=== PATIENT | male | born 1965 | race Caucasian/White ===

== ENCOUNTER 2023-01-16 08:41 | Outpatient (CLI) | payer BC, SELFPAY ==
--- NOTE | 2023-01-16 09:51 | ECG_ITS ---
Measurements Intervals [place] Rate: 48 P: 50 WV: 210 QRS: -2 QRSD: 100 T: 1 QT: 429 QTc: 383 Interpretive Statements SINUS BRADYCARDIA WITH FIRST DEGREE AV BLOCK BASELINE ARTIFACT- I, II AVR, AVL ABNORMAL ECG NO PREVIOUS ECG AVAILABLE FOR COMPARISON Electronically Signed On 01-16-2023 11:10:29 TRAILER BODY ASSEMBLER by Andrea Roman D.O.
[2023-01-16 10:34] LABS: Basophils Absolute Auto 0.1 K/mm3 (0.0-0.1); Basophils Percent Auto 0.8 % (0.2-1.2); Eosinophils Absolute Auto 0.2 K/mm3 (0-0.3); Eosinophils Percent Auto 3.3 % (0-4.4); Hematocrit 40.9 % (42.0-52.0); Hemoglobin 13.6 g/dL (14.0-18.0); Immature Granulocyte Absolute 0.02 K/mm3 (0.00-0.031); Immature Granulocyte Percent A 0.3 % (0-0.5); Lymphocytes Absolute Auto 2.31 K/mm3 (0.9-3.2); Lymphocytes Percent Auto 34.7 % (18.3-44.2); Mean Corpuscular HGB Conc 33.3 g/dl (32-36); Mean Corpuscular Hemoglobin 29.8 pg (26-34); Mean Corpuscular Volume 89.7 fl (80-100); Mean Platelet Volume 11.2 fl (7.4-10.4); Monocytes Absolute Auto 0.6 K/mm3 (0.1-0.6); Monocytes Percent Auto 9.3 % (2.6-8.5); Neutrophils Absolute Auto 3.4 K/mm3 (1.3-6.7); Neutrophils Percent Auto 51.6 % (45.5-73.1); Platelet Count Result 210 k/mm3 (150-375); Red Blood Count 4.56 M/mm3 (4.6-6.20); Red Cell Distribution Width 12.9 % (11.5-14.5); White Blood Count 6.7 K/mm3 (4.5-10.0)
[2023-01-16 10:40] LABS: Urine Cotinine NEGATIVE
[2023-01-16 10:42] LABS: Albumin Level 4.5 g/dL (3.5-5.1); Estimated Glomerular Filt Rate > 60; Glucose 92 mg/dL (65-110)
[2023-01-16 10:47] LABS: Hemoglobin A1C 5.2 % (<5.7)
== END 2023-01-16 08:42 | disposition home or self-care (01) ==
LOC: ANHSURGERY 08:48
PROVIDERS: Visit Provider Orthopaedic Surgery
DX: Z01.818 Encounter for other preprocedural examination (principal); M17.12 Unilateral primary osteoarthritis, left knee; M17.0 Bilateral primary osteoarthritis of knee; R94.31 Abnormal electrocardiogram [ECG] [EKG]; R00.1 Bradycardia, unspecified
CPT/HCPCS: 80307; 82040; 82565; 82947; 83036; 85025; 86850; 86900; 86901; 87081; 93005

== ENCOUNTER 2023-01-20 00:15 | Day surgery (SDC) | payer BC, SELFPAY ==
[2023-01-16 09:13] VITALS: BP 147/92; PULSE 52; RESP 16; TEMP 36.3; O2SAT 98; BMI 31.9
--- NOTE | 2023-01-16 09:23 | PC.NURSE ---
Report to the Outpatient Waiting Room, entrance under the green pavilion located off [facility], at time __6:00AM on date __01/20/23 . Planned Procedure Time: __7:30AM . Time changes happen often and if your time is changed the preop area will call you the afternoon before. - You and your visitor will be asked to self-screen and do not enter if you have any COVID symptoms. - Only one visitor is requested with a max of two and NO children visitors are allowed at this time. - The patient visitor may be requested to leave or wait in car when not with patient due to distancing restrictions. - A mask is optional within the hospital at this time. Patients may have clear liquids (water, carbonated beverages, clear teas, apple juice) until 3 hours prior to surgery with a maximum of 20 ounces. - No food from midnight until time of surgery Take the following medications with a SIP of water the morning of surgery: __GABAPENTIN, NEBIVOLOL, TRAMADOL DO NOT STOP ANY OF YOUR OTHER PRESCRIPTION MEDICATIONS PRIOR TO SURGERY ?EXCEPT THE FOLLOWING Medications to discontinue per physician ___HOLD ALL VITAMINS/SUPPLEMENTS 3 DAYS PRE-OP Date to take last dose____01/16/23 Please no make-up, nail occitan, hairspray, perfume, deodorant, or body powder the day of surgery. No jewelry (including any body piercings) or valuables the day of surgery, leave them at home. Please take a shower or bath the night before, or the morning of, surgery with an antibacterial soap. Wear comfortable, loose fitting clothing. Children are encouraged to wear pajamas. - Jewelry must be removed prior to entering the operating room. Rings and piercings that are not removed may be cut off. - The hospital will not accept responsibility for valuables. - Please leave all valuables, including medications, at home the day of surgery. If you are going home after surgery, a licensed wood pile driver operator must drive you home. - NO public transportation without another adult if you receive anesthesia. - We recommend that an adult stay with you for 24 hours following discharge. - We also recommend that you do not drive, make important decision, drink alcoholic beverages, or take any drugs that were not prescribed by your health care provider for at least 24 hours after your discharge time. Follow any additional instructions given to you from your surgeon. If you or anyone in your household have experienced Covid symptoms in the past week, please notify your surgeon or the nurse liaison at the phone number below for possible testing. Telephone instructions given to _PATIENT & WIFE___and asked if any additional questions and then verbalized understanding. Patient advised to call surgeon office or pre surgery nurse liaison [phone] if any additional questions.
[2023-01-20] VITALS (12 sets, daily range): BP systolic 112–152; BP diastolic 57–109; PULSE 53–107; RESP 12–18; TEMP 36.1–37.1; O2SAT 95–100
--- NOTE | ~2023-01-20 | XR_ITS ---
EXAMINATION: [id number]_[id number]_CR DATE: 01/20/2023 10:30 INDICATION: Postoperative evaluation following left total knee arthroplasty. TECHNIQUE: Anteroposterior and lateral views of the left knee were obtained. COMPARISON: 10/08/2022 FINDINGS: Left total knee arthroplasty with patellar resurfacing appears well seated and in near anatomic align ment. No fractures identified. Small enthesophytes along the upper pole of the patella. Expected pos toperative subcutaneous, intramedullary and intra-articular gas. IMPRESSION: 1. Left total knee arthroplasty, negative for postoperative purposes. Reviewed, dictated and finalized at location B.
[2023-01-20] MEDS: ACETAMINOPHEN 500 MG TABLET 1000 MG PO (06:46)
[2023-01-20] MEDS: LACTATED RINGERS 1,000 ML 30 ML IV CONT ×2 (06:46→10:10)
[2023-01-20] MEDS: TRANEXAMIC ACID 1,000MG/ISO100 1,000 MG/100 ML BAG 200 MG IVPB (07:03)
--- NOTE | 2023-01-20 07:14 | WPDHPUPDATE1 ---
History and Physical Update Update Date/Time: 01/20/23 07:14 History and Physical has been reviewed, including an updated exam of the patient. There are NO changes in the patient's condition. Risks, benefits, and alternatives have been discussed and questions answered. Patient agrees to proceed with procedure.
--- NOTE | 2023-01-20 07:15 | WPDANESEPPF ---
Anes - Initial Pre Proc Eval Procedure: Operation Date: 01/20/23 07:30 Proposed Procedures p Left Total Knee Arthroplasty - Gio Stratton MD Date/Time: 01/20/23 07:15 Surgeon: Gio Stratton MD Pre Op Diagnosis: oa left knee Patient Data Age: 57 Gender: M Height: 1.78 m Weight: 98 kg Last Vital Signs Temp 36.2 C L 01/20/23 07:09 Pulse 53 L 01/20/23 07:09 Resp 16 01/20/23 07:09 BP 130/75 01/20/23 07:09 Pulse Ox 98 01/20/23 07:09 O2 Del Method Room Air 01/20/23 07:09 Allergies Allergy/AdvReac Type Severity Reaction Status Date / Time No Known Allergies Allergy Verified 01/20/23 06:19 Home Medications Medication Instructions Recorded Confirmed Type gabapentin 600 mg tablet 600 mg PO TID 12/26/22 01/20/23 History meloxicam 15 mg tablet 15 mg PO DAILY 12/26/22 01/16/23 History nebivolol 10 mg tablet 10 mg PO QAM 12/26/22 01/20/23 History tadalafil 2.5 mg tablet (Cialis) 2.5 mg PO DAILY PRN Erectile 12/26/22 01/16/23 History Dysfunction testosterone cypionate 200 mg/mL 200 mg IM ONCE 12/26/22 01/16/23 History intramuscular oil (Depo-Testosterone) tramadol 50 mg tablet 100 mg PO TID 12/26/22 01/20/23 History Pregnenolone 30 mg PO DAILY 01/16/23 01/16/23 History acetaminophen 500 mg tablet 500 mg PO QAM 01/16/23 01/16/23 History lactobacillus combination no.8 3 3 cell PO DAILY 01/16/23 01/16/23 History billion cell capsule magnesium 500 mg tablet 15 mg PO DAILY 01/16/23 01/16/23 History multivitamin 1 tablet PO DAILY 01/16/23 01/16/23 History omega 9-rpp-rks-fish oil 1,200 mg 1 cap PO DAILY 01/16/23 01/16/23 History (144 mg-216 mg) capsule (Fish Oil) red yeast rice 600 mg capsule 600 mg PO DAILY 01/16/23 01/16/23 History rivaroxaban 10 mg tablet (Xarelto) 10 mg PO DAILY PE prophylaxis s/p 01/16/23 01/16/23 Rx total joint replacement 14 days #14 tabs tumeric 100 mg-aravind 150 mg-olive 1 cap PO DAILY 01/16/23 01/16/23 History 50 mg-oreg 150 mg-caprylate capsule Patient hx anesthesia problems: none Family hx anesthesia problems: none Results Review: All pre-operative results and documents have been reviewed as part of the pre-operative evaluation. 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 Sexual Orientation (if Verbalized by the Patient): Straight or Heterosexual Spiritual care concerns: Yes Agree to blood products: No Anes - Eval Final PreProcedure Day of Procedure 01/20/23 07:15 Patient weight: obese Heart: regular rate and rhythm Lungs: clear to auscultation Airway: Mallampati scale class II Neurological: alert and oriented Last oral intake: >/= 8 hours ASA classification: III Emergent: no Anesthetic plan: proceed Anesthesia type and monitoring: general LMA and standard monitoring Results Review: All pre-operative results and documents have been reviewed as part of the pre-operative evaluation. Informed Consent: The patient's anesthetic plan and its attendant risks and benefits were discussed with the patient/family/POA. Questions were solicited and answers provided to the sat
[2023-01-20] MEDS: ceFAZolin 2 GM/D5W 50 ML 2 GM/50 ML BAG IVPB ×3 (07:30→22:48)
--- NOTE | 2023-01-20 07:30 | WPDANESPNB ---
Anes - Peripheral Nerve Block Date/Time: 01/20/23 07:30 I have discussed with the patient/family/POA the placement of a peripheral nerve block for post-operative pain management, including associated risks, benefits, complications, and side effects. Alternative methods of post-operative analgesia were detailed. Questions were solicited and answers provided to the satisfaction of the patient/family/POA. Time-Out: A pre-procedural Time-Out was completed immediately before starting the procedure and confirmed: Patient Identification, Site, Procedure, Patient Position and the Availability of Requisite Equipment. Clinical Indications: Acute post-operative pain management requested by the operative surgeon. Nerve Block Insertion Note Anes-nerve block: adductor canal left Patient position: supine Skin prep: chlorhexidine Needle: 22 gauge, stimulating, insulated echogenic needle. Needle length: 80 mm Technique: ultrasound Technique comment: mid2mg [id number] Injectate: bupivacaine 0.5% with epi 5 mcg/ml (30ml no epi) and dexamethasone (mg) (4) Observations: tolerated well Complications: none Procedure start time:: 719 Procedure end time:: 726
[2023-01-20] MEDS: GENTAMICIN BONE CEMENT REFOBACIN 1 EACH TOPICAL (08:50)
--- NOTE | 2023-01-20 09:00 | SUR.OPER ---
tourniquet time 60mts 30 minutes added to time as per surgeon
[2023-01-20] MEDS: ceFAZolin SODIUM 1 GM VIAL IV PUSH (09:07)
[2023-01-20] MEDS: fentaNYL CITRATE INJ (*CRX) 100 MCG/2 ML VIAL 25 MCG IV PUSH ×6 (10:19→11:28)
[2023-01-20] MEDS: HYDROmorphone HCL INJ (*CRX) 1 MG/ML SYR IV PUSH ×3 (10:38→11:00)
--- NOTE | 2023-01-20 10:47 | SUR.PHASEI ---
[address] love to seee about getting something more for pain, orders given to change to 1mg dilaudid q5 minutes max dose of 3mg
--- NOTE | 2023-01-20 11:05 | W.PM.PROC2 ---
Procedure Note - Detailed Date of Procedure 01/20/23 Pre-op Diagnosis oa left knee Post-op Diagnosis Same Procedure Performed A left total knee replacement Surgeon Gio Stratton MD Traffic Engineering Director [facility] Brooks Anesthesia General and Regional Description of Procedure The patient was identified and proper site identified. In the preop holding area the anesthesia team performed a left lower extremity sub sartorial block after which the patient was taken to the operating room and transferred to the OR table positioning supine taking care to pad the torso and extremities. After general anesthetic induction and intubation a nonsterile tourniquet was placed high on the left thigh. The left lower extremity was prepped and draped in the usual sterile fashion. The extremity was exsanguinated and with the knee flexed tourniquet was inflated to 300 mmHg remaining up for approximately 63 minutes. An anterior midline incision was made and a modified medial parapatellar approach was used. Infra and suprapatellar fat pads were excised. Patella was resected leaving 15 mm thickness and prepared for the 31 round three peg component. Using the intramedullary guide the distal femur was cut in the proper orientation for the size seven femoral component. Using the extramedullary guide the tibia was cut perpendicular to the long axis protecting collateral ligaments and popliteal structures. It was sized to a 75. Flexion and extension gaps were balanced. Trial reduction was undertaken and the weight-bearing line was noted to passed through the center of the joint. Proximal tibia was drilled and punched in the proper orientation for the real component. Trial components were removed. The bone surfaces were washed with pulsatile lavage and dried. The real components were cemented simultaneously. The knee was held in extension and the patella held clamped until the cement had cured. Excess cement was removed from the joint. After trialing it was determined that the 14 mm insert gave full range of motion from 0-120 degrees of flexion and the patella tracked in the femoral groove with no lift-off. After final lavage the joint the real size 75 14 millimeter insert was placed and secured with a locking bar. A Betadine and saline wash was placed into the wound and allowed to sit for approximately 3 minutes and then evacuated. Periarticular tissues were infiltrated with 60 cc of the arthroplasty solution. Surgicel powder was applied into the wound during the closure. The extensor mechanism was repaired with #2 Vicryl suture and 0 looped PDS suture. Subcu was reapproximated with 3-0 Monocryl, 3-0 Quill and tissue adhesive for the skin. A sterile dressing was applied. He tolerated the procedure well, was awakened and extubated, transferred to the bed and was taken to recovery area in stable condition. There were no known intraoperative complications. Perioperative antibiotics were administered. Estimated Blood Loss -200.0 Tourniquet Time 63 Drains No Packing No Pathology None sent Complications No immediate complications Condition Stable Disposition PACU [facility] Billing Surgery - Charge Forward: Surgery Billing ([id number])
[2023-01-20] MEDS: diazePAM INJ (*CRX) 10 MG/2 ML SYRINGE 2.5 MG IV PUSH (11:09)
[2023-01-20] MEDS: SODIUM CHLORIDE 0.9% IV 1,000 ML 125 ML IV CONT (12:52)
[2023-01-20] MEDS: KETOROLAC 15 MG/ML VIAL (*BKC) IV PUSH ×2 (12:54→18:21)
[2023-01-20] MEDS: oxyCODONE/ACETAMINOPHEN (*CRX) 5-325 MG TABLET 1 TABLET PO ×3 (13:05→20:09)
[2023-01-20] MEDS: GABAPENTIN 300 MG CAPSULE 600 MG PO ×2 (13:05→18:16)
--- NOTE | 2023-01-20 13:18 | PC.NURSE ---
This patient, Adria Kemp, was received from [or] on 01/20/23 at 1200. Patient/family oriented to unit policies and routines. Report from hakeem
[2023-01-20] MEDS: SENNA/DOCUSATE SODIUM TABLET 2 TAB PO (18:17)
[2023-01-20] MEDS: FAMOTIDINE 20 MG TABLET PO (20:09)
[2023-01-21] MEDS: KETOROLAC 15 MG/ML VIAL (*BKC) IV PUSH ×2 (00:13→05:54)
[2023-01-21] MEDS: oxyCODONE/ACETAMINOPHEN (*CRX) 5-325 MG TABLET 1 TABLET PO ×3 (00:14→10:58)
[2023-01-21 06:00] VITALS: BP 121/67; PULSE 60; RESP 16; TEMP 36.5; O2SAT 98
[2023-01-21] MEDS: ceFAZolin 2 GM/D5W 50 ML 2 GM/50 ML BAG IVPB (06:00)
--- NOTE | 2023-01-21 07:53 | PM.DS ---
DS: Admitting Diagnosis Discharge Date 01/21/2023 Admitting Diagnosis Left knee osteoarthritis DS: Discharge Diagnosis Discharge Diagnosis (1) Status post total left knee replacement: Code(s): Z96.652 - Presence of left artificial knee joint Status: Acute Plan 57-year-old male postop day 1 after left total knee replacement. Overall uneventful overnight stay. Doing very well this morning was able to participate fully with therapy yesterday. Postoperative wound care and medications were discussed with him this morning. Plan for him to see therapy again today prior to discharge. He has a scheduled follow-up appointment in 2 weeks for wound check. DS: Summary Hospital Course Reason for hospitalization: Observation after outpatient procedure Hospital Course: 57-year-old male admitted for observation after left total knee replacement on 01/20/2023. Was seen by therapy yesterday and will plan to do so again today prior to discharge. Exam of his surgical dressing this morning shows that is clean and dry. No significant ecchymosis or erythema. Plan discharge today with follow-up in 2 weeks. Status at Discharge Functional status at discharge: uses cane/walker Overall status at discharge: patient is progressing back to baseline Time Spent with Patient Time attestation: Total time spent providing and/or coordinating discharge services: Time spent: Less than 30 minutes Exam Const: General: comfortable and no acute distress HENMT: Mouth: Yes moist mucous membranes Eyes: General: appearance normal, both eyes and all related structures Resp: Effort & Inspection: normal respiratory effort Skin: General skin exam: normal color and no erythema Other: There is a clean and dry surgical dressing over his incision at the anterior left knee. Neuro: Sensory Exam: normal sensation Extrem: Other: Exam of his left knee shows active range of motion from near full extension. Calves negative. He is able to dorsi and plantar flex the left ankle without difficulty. Neurovascular status left lower extremity intact. Psych: Mental Status: mental status grossly normal Radiology Reports: Comments: EXAMINATION: [id number]_[id number]_CR DATE: 01/20/2023 10:30 INDICATION: Postoperative evaluation following left total knee arthroplasty. TECHNIQUE: Anteroposterior and lateral views of the left knee were obtained. COMPARISON: 10/08/2022 FINDINGS: Left total knee arthroplasty with patellar resurfacing appears well seated and in near anatomic alignment.? No fractures identified. Small enthesophytes along the upper pole of the patella. Expected postoperative subcutaneous, intramedullary and intra-articular gas. IMPRESSION: 1. Left total knee arthroplasty, negative for postoperative purposes. Knee X-Ray 01/20/23 Discharge Plan Discharge Patient Disposition: Home, Self-Care Discharge Instructions: 3 times daily for 20 minutes each time, reclining in bed with ice packs over the incision and a pillow underneath the calf of the affected leg, not under the knee. Your wound is glued so it is okay to remove the dressing, get into the shower and get the wound wet in two days. Be sure to read through all the information that came from a my office and the hospital. Most of the answers you will need can be found that material. Call the office with any questions that you cannot find answers to, or concerns you may have. After the Xarelto is completed, start taking one coated 325 mg aspirin daily and do this for four more weeks. Please call [facility] at as soon as possible to arrange for/verify your follow-up appointment to be seen in 2 weeks. Also, call the office with any orthopedic/surgical related questions prior to follow-up. Be sure to get up and move around several times daily but do not overdo it. Take the arthritis formula Tylenol 650 mg tablet on an 8 hour schedule. A good 8 hour schedule is:
[2023-01-21] MEDS: polyethylene glycoL 3350 17 GM POWD.PACK PO (08:08)
[2023-01-21] MEDS: ACIDOPHILUS/BULGARICUS CHEWABLE TABLET 1 TABLET PO (08:08)
[2023-01-21] MEDS: GABAPENTIN 300 MG CAPSULE 600 MG PO (08:08)
[2023-01-21] MEDS: SENNA/DOCUSATE SODIUM TABLET 2 TAB PO (08:08)
[2023-01-21] MEDS: FAMOTIDINE 20 MG TABLET PO (08:09)
[2023-01-21] MEDS: OMEGA 3 POLYUNSAT FATTY ACIDS 1 GM CAP PO (08:09)
[2023-01-21] MEDS: MULTIVITAMINS THERAPEUTIC TAB (*BKC) 1 TABLET PO (08:09)
[2023-01-21] MEDS: RIVAROXABAN 10 MG TABLET PO (08:09)
[2023-01-21] MEDS: NEBIVOLOL HCL 5 MG TABLET 10 MG PO (08:09)
== END 2023-01-21 11:35 | disposition home or self-care (01) ==
LOC: ANHSURGERY 11:05 → ANH3MEDSUR 11:53
PROVIDERS: Visit Provider Orthopaedic Surgery
PROC: (CPT 27447; principal; 2023-01-20 07:30)
DX: M17.0 Bilateral primary osteoarthritis of knee (principal); I10 Essential (primary) hypertension
CPT/HCPCS: 27447; 73560; 80307; 82040; 82565; 82947; 83036; 85025; 86850; 86900; 86901; 87081; 93005; 97110; 97116; 97161; 97165; 97530; 97535; A9270; C1713; C1776; J0171; J0461; J0690; J1100; J1170; J1885; J2250; J2270; J2405; J2704; J2795; J3010; J3360; J3370; J7030; J7120

== ENCOUNTER 2023-04-21 00:35 | Day surgery (SDC) | payer BC, SELFPAY ==
[2023-04-10 08:38] VITALS: BMI 30.9
--- NOTE | 2023-04-10 08:58 | PC.NURSE ---
Report to the Outpatient Waiting Room, entrance under the green pavilion located off [facility], at time _11:00AM on date ___04/21/23____. Planned Procedure Time: __1:00PM . Time changes happen often and if your time is changed the preop area will call you the afternoon before. - You and your visitor will be asked to self-screen and do not enter if you have any COVID symptoms. - A mask is optional within the hospital at this time. Patients may have clear liquids (water, carbonated beverages, clear teas, apple juice) until 3 hours prior to surgery with a maximum of 20 ounces. - No food from midnight until time of surgery Take the following medications with a SIP of water the morning of surgery: __NEBIVOLOL, GABAPENTIN NEEDED, TRAMADOL NEEDED___ DO NOT STOP ANY OF YOUR OTHER PRESCRIPTION MEDICATIONS PRIOR TO SURGERY ?EXCEPT THE FOLLOWING Medications to discontinue per physician ____NONE Date to take last dose Please no make-up, nail romanian, hairspray, perfume, deodorant, or body powder the day of surgery. No jewelry (including any body piercings) or valuables the day of surgery, leave them at home. Please take a shower or bath the night before, or the morning of, surgery with an antibacterial soap. Wear comfortable, loose fitting clothing. Children are encouraged to wear pajamas. - Jewelry must be removed prior to entering the operating room. Rings and piercings that are not removed may be cut off. - The hospital will not accept responsibility for valuables. - Please leave all valuables, including medications, at home the day of surgery. If you are going home after surgery, a licensed tow bar driver must drive you home. - NO public transportation without another adult if you receive anesthesia. - We recommend that an adult stay with you for 24 hours following discharge. - We also recommend that you do not drive, make important decision, drink alcoholic beverages, or take any drugs that were not prescribed by your health care provider for at least 24 hours after your discharge time. Follow any additional instructions given to you from your surgeon. If you or anyone in your household have experienced Covid symptoms in the past week, please notify your surgeon or the nurse liaison at the phone number below for possible testing. Telephone instructions given to __PATIENT and asked if any additional questions and then verbalized understanding. Patient advised to call surgeon office or pre surgery nurse liaison [phone] if any additional questions.
[2023-04-21] VITALS (16 sets, daily range): BP systolic 117–174; BP diastolic 66–97; PULSE 85–94; RESP 14–18; TEMP 36.2–37.5; O2SAT 94–100
--- NOTE | ~2023-04-21 | XR_ITS ---
EXAMINATION: [id number]_[id number]_CR DATE: 04/21/2023 14:55 CDT INDICATION: Right knee arthroplasty TECHNIQUE: 2 views right knee FINDINGS: There is a right total knee arthroplasty in expected position. Subcutaneous gas with fluid and air in the joint are consistent with recent surgery. No evidence of periprosthetic fracture. IMPRESSION: 1. Recent right total knee arthroplasty. Reviewed, dictated and finalized at location []
--- NOTE | 2023-04-21 07:24 | WPDANESEPPF ---
Anes - Initial Pre Proc Eval Procedure: Operation Date: 04/21/23 11:00 Proposed Procedures p Right Total Knee Arthroplasty - Gio Stratton MD Date/Time: 04/21/23 07:24 Surgeon: Gio Stratton MD Pre Op Diagnosis: right knee oa Patient Data Age: 57 Gender: M Height: 1.78 m Weight: 98 kg Allergies Allergy/AdvReac Type Severity Reaction Status Date / Time No Known Allergies Allergy Verified 04/15/23 10:03 Home Medications Medication Instructions Recorded Confirmed Type gabapentin 600 mg tablet 600 mg PO TID 12/26/22 04/15/23 History nebivolol 10 mg tablet 10 mg PO QAM 12/26/22 04/15/23 History tadalafil 2.5 mg tablet (Cialis) 2.5 mg PO DAILY PRN Erectile 12/26/22 04/15/23 History Dysfunction tramadol 50 mg tablet 100 mg PO TID 12/26/22 04/15/23 History acetaminophen 500 mg tablet 1,000 mg PO QAM 01/16/23 04/15/23 History cyclobenzaprine 10 mg tablet 10 mg PO QPM PRN muscle spasm #20 02/03/23 04/15/23 Rx tabs celecoxib 100 mg capsule (Celebrex) 100 mg PO BID 03/18/23 04/15/23 History testosterone enanthate 100 mg/0.5 100 mg subcut WEEKLY 04/10/23 04/15/23 History mL subcutaneous auto-injector (Xyosted) rivaroxaban 10 mg tablet (Xarelto) 10 mg PO DAILY PE prophylaxis s/p 04/15/23 04/15/23 Rx surgery #14 tabs mupirocin 2 % topical ointment 1 applic topical DAILY 5 days #22 04/17/23 Rx grams Patient hx anesthesia problems: none Family hx anesthesia problems: none Results Review: All pre-operative results and documents have been reviewed as part of the pre-operative evaluation. [facility] Past Medical History Medical History (Updated 04/15/23 @ 10:32 by Gio Stratton MD) Arthritis of right knee Fibromyalgia Hypertension Surgical History Surgical History History of cervical spinal surgery 2020 History of fusion of lumbar spine 2020 Status post total left knee replacement 01/20/2023 Family History Family History Mother Diabetes mellitus Hypertension Father Colon cancer Social History Social History Smoking status: Never smoker Alcohol intake: current Drinks per week: 5 Substance use: never Substance use type: does not use Lack of Transportation: No Lack of Food: Never True Current Housing: I Have Housing Concerned About Future Housing: No Difficulty Paying Gas/Electric Bills: No Difficulty Paying for Meds: No Currently Unemployed: No Education: High School Diploma/GED Difficulty w/ Childcare or Family Care: No Living arrangements: with family Additional living arrangements comments: Occupation/Education: occupation 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 Gender identity (if verbalized by the patient): Male Sexual Orientation (if Verbalized by the Patient): Straight or Heterosexual Spiritual care concerns: Yes (BLOOD REFUSAL) Agree to blood products: No Anes - Eval Final PreProcedure Day of Procedure 04/21/23 07:24 Patient weight: obese Heart: regular rate and rhythm Lungs: clear to auscultation Airway: Mallampati scale class II Neurological: alert and oriented Last oral intake: >/= 8 hours ASA classification: III Emergent: no Anesthetic plan: proceed Anesthesia type and monitoring: regional spinal and standard monitoring Results Review: All pre-operative results and documents have been reviewed as part of the pre-operative evaluation. Informed Consent: The patient's anesthetic plan and its attendant risks and benefits were discussed with the patient/family/POA. Questions were solicited and answers provided to the satisfaction of the patient/family/POA.
--- NOTE | 2023-04-21 07:31 | WPDANESPNB ---
Anes - Peripheral Nerve Block Date/Time: 04/21/23 07:31 I have discussed with the patient/family/POA the placement of a peripheral nerve block for post-operative pain management, including associated risks, benefits, complications, and side effects. Alternative methods of post-operative analgesia were detailed. Questions were solicited and answers provided to the satisfaction of the patient/family/POA. Time-Out: A pre-procedural Time-Out was completed immediately before starting the procedure and confirmed: Patient Identification, Site, Procedure, Patient Position and the Availability of Requisite Equipment. Clinical Indications: Acute post-operative pain management requested by the operative surgeon. Nerve Block Insertion Note Anes-nerve block: adductor canal right Patient position: supine Skin prep: chlorhexidine Needle: 22 gauge, stimulating, insulated echogenic needle. Needle length: 80 mm Technique: ultrasound Injectate: bupivacaine 0.5% with epi 5 mcg/ml (30cc - no epi) Observations: tolerated well Complications: none Procedure start time:: 113 Procedure end time:: 1136
[2023-04-21] MEDS: LACTATED RINGERS 1,000 ML 30 ML IV CONT ×2 (09:50→14:30)
[2023-04-21] MEDS: TRANEXAMIC ACID 1,000MG/ISO100 1,000 MG/100 ML BAG 200 MG IVPB (09:55)
[2023-04-21] MEDS: ACETAMINOPHEN 500 MG TABLET 1000 MG PO ×2 (09:56→16:09)
--- NOTE | 2023-04-21 11:01 | WPDHPUPDATE1 ---
History and Physical Update Update Date/Time: 04/21/23 11:01 History and Physical has been reviewed, including an updated exam of the patient. There are NO changes in the patient's condition. Risks, benefits, and alternatives have been discussed and questions answered. Patient agrees to proceed with procedure.
[2023-04-21] MEDS: ceFAZolin 2 GM/D5W 50 ML 2 GM/50 ML BAG IVPB ×2 (12:05→20:24)
--- NOTE | 2023-04-21 14:29 | W.PM.PROC2 ---
Procedure Note - Detailed Date of Procedure 04/21/23 Pre-op Diagnosis right knee oa Post-op Diagnosis Same Procedure Performed Right total knee replacement Surgeon Gio Stratton MD [employer] [facility] Anesthesia General and Regional Description of Procedure The patient was identified and proper site identified. In the preop holding area the anesthesia team performed a right-sided sub sartorial block after which the patient was taken to the operating room and transferred to the OR table positioning supine taking care to pad the torso and extremities. After general anesthetic induction and intubation a nonsterile tourniquet was placed high on the right thigh. The right lower extremity was prepped and draped in the usual sterile fashion. The extremity was exsanguinated and with the knee flexed tourniquet was inflated to three high mmHg remaining up for approximately 63 minutes. An anterior midline incision was made and a modified medial parapatellar approach was used. Infra and suprapatellar fat pads were excised. Patella was resected leaving 15 mm thickness and prepared for the 31 round three peg component. Using the intramedullary guide the distal femur was cut in the proper orientation for the size 70 femoral component. Using the extramedullary guide the tibia was cut perpendicular to the long axis protecting collateral ligaments and popliteal structures. It was sized to a 75. Flexion and extension gaps were balanced. Trial reduction was undertaken and the weight-bearing line was noted to passed through the center of the joint. Proximal tibia was drilled and punched in the proper orientation for the real component. Trial components were removed. The bone surfaces were washed with pulsatile lavage and dried. The real components were cemented simultaneously. The knee was held in extension and the patella held clamped until the cement had cured. Excess cement was removed from the joint. After trialing it was determined that the 14 mm insert gave full range of motion from 0-120 degrees of flexion and the patella tracked in the femoral groove with no lift-off. After final lavage the joint the real E poly size 14 insert was placed and secured with a locking bar. A Betadine and saline wash was placed into the wound and allowed to sit for approximately 3 minutes and then evacuated. Periarticular tissues were infiltrated with 60 cc of the arthroplasty solution. Surgicel powder was applied into the wound during the closure. The extensor mechanism was repaired with #2 Vicryl suture and 0 looped PDS suture. Subcu was reapproximated with 3-0 Monocryl, 2-0 Quill and tissue adhesive for the skin. A sterile dressing was applied. He tolerated the procedure well, was awakened and extubated, transferred to the bed and was taken to recovery area in stable condition. There were no known intraoperative complications. Perioperative antibiotics were administered. Estimated Blood Loss 150 Tourniquet Time 63 Drains No Packing No Pathology None sent Complications No immediate complications Condition Stable Disposition PACU [facility] Billing Surgery - Charge Forward: Surgery Billing ([id number])
[2023-04-21] MEDS: fentaNYL CITRATE INJ (*CRX) 100 MCG/2 ML VIAL 25 MCG IV PUSH ×8 (14:35→15:00)
[2023-04-21] MEDS: HYDROmorphone HCL INJ (*CRX) 1 MG/ML SYR 0.5 MG IV PUSH ×6 (14:55→15:30)
--- NOTE | 2023-04-21 15:25 | SUR.PHASEI ---
1525: multiple phone calls to Dr. Aiden Castellano regarding patient's pain 06/19. Many attempts to control pain. Including; elevation, ice therapy, medication, relaxation, therapeutic communication, breathing exercises. Dr. Castellano gave this RN orders for pain medications as needed. Pain is still uncontrollable and patient is continuing c/o 06/19 pain.
[2023-04-21] MEDS: diphenhydrAMINE HCl INJ 50 MG/ML VIAL 25 MG IV PUSH (15:34)
[2023-04-21] MEDS: oxyCODONE HCL (*CRX) 5 MG TAB IR PO (16:10)
--- NOTE | 2023-04-21 16:30 | ADMGEN ---
This patient, Adria Kemp, was admitted to Medical Room 347-01. Patient/family oriented to hospital policies and general routines including ID bracelet, bed and alarms, visiting hours, pain management, procedures, bathroom and other care routines, personal items, smoking policy, room service/diet, and visiting hours. Information on how to activate the Rapid Response Team has been discussed. Patient/Family are encouraged to report perceived risks to care and to ask questions if they do not understand what they are told or what they should do.
[2023-04-21] MEDS: SENNA/DOCUSATE SODIUM TABLET 2 TAB PO (17:45)
[2023-04-21] MEDS: CELECOXIB 100 MG CAPSULE PO (17:46)
[2023-04-21] MEDS: GABAPENTIN 300 MG CAPSULE 600 MG PO (17:46)
[2023-04-21] MEDS: oxyCODONE/ACETAMINOPHEN (*CRX) 5-325 MG TABLET 1 TABLET PO ×2 (17:51→20:24)
[2023-04-21] MEDS: FAMOTIDINE 20 MG TABLET PO (20:24)
[2023-04-21] MEDS: oxyCODONE HCL (*CRX) 2.5 MG TAB IR PO (22:53)
[2023-04-22] MEDS: oxyCODONE/ACETAMINOPHEN (*CRX) 5-325 MG TABLET 1 TABLET PO ×3 (01:00→09:21)
[2023-04-22 02:40] VITALS: BP 108/85; PULSE 80; RESP 18; TEMP 36.7; O2SAT 95
[2023-04-22] MEDS: ceFAZolin 2 GM/D5W 50 ML 2 GM/50 ML BAG IVPB ×2 (05:00→11:07)
[2023-04-22 05:46] LABS: Basophils Percent Auto 0.1 % (0.2-1.2); Eosinophils Percent Auto 0.1 % (0-4.4); Hematocrit 32.2 % (42.0-52.0); Hemoglobin 10.3 g/dL (14.0-18.0); Immature Granulocyte Absolute 0.07 K/mm3 (0.00-0.031); Immature Granulocyte Percent A 0.5 % (0-0.5); Lymphocytes Absolute Auto 2.15 K/mm3 (0.9-3.2); Lymphocytes Percent Auto 15.2 % (18.3-44.2); Mean Corpuscular Hemoglobin 28.8 pg (26-34); Mean Corpuscular Volume 89.9 fl (80-100); Mean Platelet Volume 11.1 fl (7.4-10.4); Monocytes Absolute Auto 1.3 K/mm3 (0.1-0.6); Monocytes Percent Auto 9.5 % (2.6-8.5); Neutrophils Absolute Auto 10.5 K/mm3 (1.3-6.7); Neutrophils Percent Auto 74.6 % (45.5-73.1); Platelet Count Result 199 k/mm3 (150-375); Red Blood Count 3.58 M/mm3 (4.6-6.20); Red Cell Distribution Width 12.8 % (11.5-14.5); White Blood Count 14.1 K/mm3 (4.5-10.0)
[2023-04-22 05:53] LABS: Anion Gap 0 mmol/L (8-16); Blood Urea Nitrogen 8 mg/dL (9-20); Calcium 8.3 mg/dL (8.4-10.2); Carbon Dioxide 34 mmol/L (22-30); Chloride 103 mmol/L (98-107); Estimated CRCL calculation 102 ml/min; Estimated Glomerular Filt Rate > 60; Glucose 121 mg/dL (65-110); Potassium 4.3 mmol/L (3.4-5.0); Sodium 137 mmol/L (137-145)
[2023-04-22 06:00] VITALS: BP 134/73; PULSE 73; RESP 20; TEMP 36.3; O2SAT 98
--- NOTE | 2023-04-22 07:32 | PM.DS ---
DS: Admitting Diagnosis Discharge Date April 22, 2023 Admitting Diagnosis Osteoarthritis right knee DS: Discharge Diagnosis Discharge Diagnosis (1) Status post total right knee replacement: Code(s): Z96.651 - Presence of right artificial knee joint Status: Acute Plan Plan discharge home today. Therapy begins in one week. Follow-up with me in the office in two weeks. Instructed to call with any questions prior to follow-up. Surgery reviewed. DS: Summary Hospital Course Reason for hospitalization: Observation following outpatient procedure Hospital Course: Following the patient's surgery was admitted to the floor to begin therapy and for pain control. Did very well and is being discharged home postop day one. Underwent right total knee replacement April 21, 2023. Status at Discharge Functional status at discharge: uses cane/walker Overall status at discharge: patient is not back to baseline Time Spent with Patient Time attestation: Total time spent providing and/or coordinating discharge services: Exam Const: General: cooperative, no acute distress and alert Nutritional Appearance: other Orientation/consciousness: patient oriented x3 Limitations: no limitations HENMT: Head: normal to inspection Chest: Chest palpation & inspection: normal inspection of the chest Resp: Effort & Inspection: normal respiratory effort and able to speak in complete sentences GI: Inspection: other Neuro: General: patient oriented x3 Cognition (Neuro): normal cognition Speech: normal speech Extrem: General: normal to inspection and other Other: Exam of the right knee demonstrates dry incision, no bruising and minimal swelling. Grossly motor and sensory function unremarkable right lower extremity. Calves negative. Psych: Appearance: grossly normal Mental Status: mental status grossly normal Radiology Reports: Comments: EXAMINATION: [id number]_CR DATE: 04/21/2023 14:55 CDT INDICATION: Right knee arthroplasty TECHNIQUE: 2 views right knee FINDINGS: There is a right total knee arthroplasty in expected position.? Subcutaneous gas with fluid and air in the joint are consistent with recent surgery. No evidence of periprosthetic fracture. IMPRESSION: 1.? Recent right total knee arthroplasty. Reviewed, dictated and finalized at location [] DS: Data Data Completed and Pending Labs on day of discharge: Labs from last 24 hours 04/22/23 05:22 WBC 14.1 H RBC 3.58 L Hgb 10.3 L D Hct 32.2 L MCV 89.9 MCH 28.8 MCHC 32.0 RDW 12.8 Plt Count 199 MPV 11.1 H Immature Gran % (Auto) 0.5 Neut % (Auto) 74.6 H Lymph % (Auto) 15.2 L [place] % (Auto) 9.5 H Eos % (Auto) 0.1 Baso % (Auto) 0.1 L Lymph # (Auto) 2.15 [place] # (Auto) 1.3 H Eos # (Auto) 0.0 Baso # (Auto) 0.0 Abs Immat Gran (auto) 0.07 H Absolute Neuts (auto) 10.5 H Absolute Nucleated RBC 0.0 Nucleated RBC % 0.0 Sodium 137 Potassium 4.3 Chloride 103 Carbon Dioxide 34 H Anion Gap 0 L BUN 8 L Creatinine 0.80 Estim Creat Clear Calc 102 Estimated GFR > 60 Glucose 121 H Calcium 8.3 L Discharge Plan Discharge Patient Disposition: Home, Self-Care Discharge Instructions: 3 times daily for 20 minutes each time, reclining in bed with ice packs over the incision and a pillow underneath the calf of the affected leg, not under the knee. Your wound is glued so it is okay to remove the dressing, get into the shower and get the wound wet in two days. Be sure to read through all the information that came from a my office and the hospital. Most of the answers you will need can be found that material. Call the office with any questions that you cannot find answers to, or concerns you may have. After the Xarelto is completed, start taking one coated 325 mg aspirin daily and do this for four m
[2023-04-22] MEDS: CELECOXIB 100 MG CAPSULE PO (09:19)
[2023-04-22 09:20] VITALS: PULSE 84
[2023-04-22] MEDS: GABAPENTIN 300 MG CAPSULE 600 MG PO (09:20)
[2023-04-22] MEDS: NEBIVOLOL HCL 5 MG TABLET 10 MG PO (09:20)
[2023-04-22] MEDS: FAMOTIDINE 20 MG TABLET PO (09:21)
[2023-04-22] MEDS: SENNA/DOCUSATE SODIUM TABLET 2 TAB PO (09:21)
[2023-04-22] MEDS: polyethylene glycoL 3350 17 GM POWD.PACK PO (09:21)
[2023-04-22] MEDS: MUPIROCIN 2% OINT 22 GM TUBE 1 APPLIC TOPICAL (09:21)
[2023-04-22 10:00] VITALS: BP 130/76; PULSE 70; RESP 20; TEMP 36.4; O2SAT 99
[2023-04-22] MEDS: RIVAROXABAN 10 MG TABLET PO (11:07)
--- NOTE | 2023-04-22 11:55 | PCPTNOTE ---
On 04/22/23, the student, [Holly Lizama], provided care and completed [facility] documentation on this patient. I have reviewed the student's documentation and agree with the findings.
== END 2023-04-22 12:26 | disposition home or self-care (01) ==
LOC: ANHSURGERY 14:21 → ANH3MED 16:23
PROVIDERS: Visit Provider Orthopaedic Surgery
PROC: (CPT 27447; principal; 2023-04-21 11:00)
DX: M17.11 Unilateral primary osteoarthritis, right knee (principal); G89.18 Other acute postprocedural pain; I10 Essential (primary) hypertension; M79.7 Fibromyalgia; Z98.1 Arthrodesis status; E66.9 Obesity, unspecified; Z68.31 Body mass index [BMI] 31.0-31.9, adult
CPT/HCPCS: 27447; 64447; 36415; 73560; 80048; 80307; 82040; 82565; 82947; 83036; 85025; 85055; 87081; 97110; 97161; 97165; A9270; C1713; C1776; J0171; J0330; J0690; J1100; J1170; J1200; J1885; J2250; J2270; J2405; J2704; J2795; J3010; J3370; J7120